=== PATIENT | female | born 1975 | race Caucasian/White ===

== ENCOUNTER 2023-11-05 14:09 | Emergency (ER) | payer BC, SELFPAY ==
[2023-11-05] VITALS (17 sets, daily range): BP systolic 111–141; BP diastolic 64–81; PULSE 92–126; RESP 22; TEMP 36.8; O2SAT 90–98; BMI 51.5
--- NOTE | 2023-11-05 14:25 | XR_ITS ---
Patient: MEMO GUZMAN Facility:?[facility] Patient ID:?[id number] Site Patient ID:?[id number] Site :?[id number] Study:?XRay-Chest 2 VIEW-11/05/2023 2:42:30 PM Ordering Physician:NAINA Final Report: INDICATION: Pounding chest. COMPARISON: None. FINDINGS: PA and lateral views of the chest were obtained. The cardiac silhouette and pulmonary vasculature are within normal limits. The lungs are clear bilaterally. There is no pneumothorax. IMPRESSION: No evidence of acute pulmonary disease. Dictated by Dallas Ball MD @ 11/05/2023 2:59:22 PM Signed by:?Dallas Ball MD @11/05/2023 2:59:22 PM (Electronic Signature)
--- NOTE | 2023-11-05 14:27 | ED.GENADULT ---
HPI - General Adult General Chief complaint: Diarrhea Stated complaint: Migraine, chest hurts, vomiting, diarrhea Time Seen by Provider: 11/05/23 14:21 Source: patient Mode of arrival: ambulatory Limitations: no limitations History of Present Illness HPI narrative: 48-year-old female with a history of osteoarthritis, migraine headaches and obesity presents today with vomiting, diarrhea, headache and chest pressure. Patient states that she woke up around 5:00 a.m. in the morning which was approximately 8 hours ago, with vomiting and diarrhea. Approximately 2 hours ago she developed a terrible headache and pounding in her chest. She states that she has not been able to drink or eat anything since waking up. She denies any fevers or chills. She denies any sick contacts. She does state that she went to [place] last week and came home 1 week ago. She denies feeling short of breath. She does state that she has migraine headaches but has not had 1 in a couple of years therefore she did not have any medications to take at home. Headache is located all over the head. She describes light sensitivity. She denies pain in her neck or back. She denies dizziness or vertigo. She denies any blood in her vomitus or stool. Related Data Home Medications Medication Instructions Recorded Confirmed atorvastatin 20 mg tablet 20 mg PO DAILY 10/23/23 11/05/23 ibuprofen 200 mg tablet (Advil) 200 mg PO Q6H PRN 10/23/23 11/05/23 Previous Rx's Medication Instructions Recorded ondansetron HCl 4 mg tablet 4 mg PO TID PRN nausea and 11/05/23 vomiting #10 tabs Allergies Allergy/AdvReac Type Severity Reaction Status Date / Time acetaminophen [From Percocet] Allergy Intermediate Verified 11/05/23 15:47 oxycodone [From Percocet] Allergy Intermediate Verified 11/05/23 15:47 Review of Systems Status of ROS: Reports: 10 or more systems reviewed and unremarkable except as noted in History and below [facility] Medical History Costochondritis ?M94.0 - Chondrocostal junction syndrome [Tietze] (ICD-10) Sensation of chest pressure ?R07.89 - Other chest pain (ICD-10) Right upper quadrant abdominal pain ?R10.11 - Right upper quadrant pain (ICD-10) Nausea and vomiting ?R11.2 - Nausea with vomiting, unspecified (ICD-10) Morbid obesity ?E66.01 - Morbid (severe) obesity due to excess calories (ICD-10) Migraine headache ?G43.909 - Migraine, unspecified, not intractable, without status migrainosus (ICD-10) History of tobacco use ?Z87.891 - Personal history of nicotine dependence (ICD-10) History of migraine ?Z86.69 - Personal history of other diseases of the nervous system and sense organs (ICD-10) Gastritis ?K29.70 - Gastritis, unspecified, without bleeding (ICD-10) Atypical chest pain ?R07.89 - Other chest pain (ICD-10) Acute bronchospasm ?J98.01 - Acute bronchospasm (ICD-10) Abdominal pain ?R10.9 - Unspecified abdominal pain (ICD-10) Surgical History History of tubal ligation ?Z98.51 - Tubal ligation status (ICD-10) History of carpal tunnel surgery of right wrist (12/28/17) ?Z98.890 - Other specified postprocedural states (ICD-10) History of repair of anterior cruciate ligament of right knee (03/12/08) ?Z98.890 - Other specified postprocedural states (ICD-10) History of arthroscopy of right knee (07/18/07) ?Z98.890 - Other specified postprocedural states (ICD-10) H/O arthroscopy of right knee (11/15/99) ?Z98.890 - Other specified postprocedural states (ICD-10) Hx of cholecystectomy ?Z90.49 - Acquired absence of other specified parts of digestive tract (ICD-10) Family History Mother Hypercholesterolemia High blood pressure Other Cervical cancer Ovarian cancer Social History Smoking Status: Heavy tobacco smoker What tobacco products do you use: cigarettes Smoking packs per day: 0.75 Smoking cigarettes per day: 15.0 Years smoked: 25 Smoking pack-years: 18.75 Do you use any of these nicotine containing products: None Second hand tobacco smoke exposure: No How often do you have a drink containing alcohol: monthly or less AUDIT-C Alcohol total score: 1 Non-prescribed substance use: denies use Exam Narrative: Exam Narrative: Obese, well-developed patient in mild distress. Alert and oriented x3. Answers questions appropriately. Mood and affect are appropriate. Thoughts are goal oriented and rational. No tangential or magical thinking noted. Patient speaks in full sentences without needing to catch her breath. HEENT: Normocephalic atraumatic. Pupils are equally round reactive to light. Extraocular muscles are intact. Conjunctivae are moist without any icterus noted. Moist mucous membranes. Posterior pharynx is normal. Neck is soft without any lymphadenopathy or thyromegaly. No masses are appreciated. Cardiovascular: Heart is regular rate and rhythm S1 and S2 are present without any murmurs. Lungs: Increased bronchial sounds bilaterally, slightly increased expiratory phase. Abdomen: Soft and nontender nondistended with normal bowel sounds. Extremities: Bilateral lower extremities are without edema. Skin: Well perfused without any obvious rashes. Const: Vital Signs, click to edit/add: Vital Signs - 24 hr 11/05/23 14:13 11/05/23 14:44 11/05/23 14:45 Temperature 98.2 F Pulse Rate 117 H 116 H Pulse Rate [Pulse Oximeter] 126 H Respiratory Rate 22 Blood Pressure Blood Pressure [Ri ght Upper Arm] 141/81 H Pulse Oximetry 96 94 96 Oxygen Delivery Me thod Room Air 11/05/23 14:55 11/05/23 14:56 11/05/23 15:00 Temperature Pulse Rate 106 H 106 H 106 H Pulse Rate [Pulse Oximeter] Respiratory Rate Blood Pressure 133/78 Blood Pressure [Ri ght Upper Arm] Pulse Oximetry 95 92 91 Oxygen Delivery Me thod 11/05/23 15:01 11/05/23 15:15 11/05/23 15:30 Temperature Pulse Rate 105 H 107 H 100 Pulse Rate [Pulse Oximeter] Respiratory Rate Blood Pressure 118/73 Blood Pressure [Ri ght Upper Arm] Pulse Oximetry 91 90 91 Oxygen Delivery Me thod 11/05/23 15:32 11/05/23 16:26 11/05/23 16:30 Temperature Pulse Rate 104 H 100 93 Pulse Rate [Pulse Oximeter] Respiratory Rate Blood Pressure 111/64 Blood Pressure [Ri ght Upper Arm] Pulse Oximetry 91 94 96 Oxygen Delivery Me thod 11/05/23 16:32 11/05/23 16:45 Temperature Pulse Rate 92 93 Pulse Rate [Pulse Oximeter] Respiratory Rate Blood Pressure 112/70 Blood Pressure [Ri ght Upper Arm] Pulse Oximetry 95 98 Oxygen Delivery Me thod Course Course ED Course: EKG, read by me, shows sinus tachycardia with a pulse of 116. Point of care troponin was 0. IV inserted and patient is given Zofran, Toradol, Benadryl, L of normal saline. CBC was unremarkable. D-dimer was elevated at 1.4. Given that the patient has had recent traveling, is quite tachycardic and and complains of her chest pounding we did proceed with a chest CT PE protocol. If this was negative for PE. Did mention some ground-glass opacities that could be infectious, however, without an elevated white cell count or CP and without any respiratory symptoms I do believe this likely represents atelectasis. After 1 L of fluid her pulse had come down to 106, 2 L was started. Chemistries were unremarkable. Lactate was normal. ALT slightly elevated at 53, otherwise LFTs normal. Lipase normal. Troponin was normal. Patient was feeling better after treatment, pulse did come down to 93 after 2 L of normal saline. Vital Signs Vital signs: Initial Vital Signs Temperature 98.2 F 11/05/23 14:13 Temperature Source Temporal Artery Scan 11/05/23 14:13 Pulse Rate 126 H 11/05/23 14:13 Respiratory Rate 22 11/05/23 14:13 Blood Pressure 141/81 H 11/05/23 14:13 Blood Pressure Mean 101 11/05/23 14:13 Blood Pressure Position Sitting 11/05/23 14:13 Pulse Oximetry 96 11/05/23 14:13 Oxygen Delivery Method Room Air 11/05/23 14:13 Vital Signs Temperature 98.2 F 11/05/23 14:13 Pulse Rate 126 H 11/05/23 14:13 Respiratory Rate 22 11/05/23 14:13 Blood Pressure 141/81 H 11/05/23 14:13 Pulse Oximetry 96 11/05/23 14:13 Oxygen Delivery Method Room Air 11/05/23 14:13 Temperature 98.2 F 11/05/23 14:13 Pulse Rate 93 11/05/23 16:45 Respiratory Rate 22 11/05/23 14:13 Blood Pressure 112/70 11/05/23 16:32 Pulse Oximetry 98 11/05/23 16:45 Oxygen Delivery Method Room Air 11/05/23 14:13 Medications Administered Medications: Discontinued Medications Generic Name Dose Route Start Last Admin Trade Name Jbq PRN Reason Stop Dose Admin Diphenhydramine HCl 25 mg 11/05/23 14:25 11/05/23 14:49 Diphenhydramine 50 Mg/Ml Inj IVP 11/05/23 14:26 25 mg ONCE ONE Administration Sodium Chloride 1,000 mls @ 1,000 mls/hr 11/05/23 14:30 11/05/23 15:32 0.9 % Sodium Chloride 1000 Ml IV 11/05/23 15:29 Infused .Q1H DULCE Infusion Sodium Chloride 1,000 mls @ 1,000 mls/hr 11/05/23 15:45 11/05/23 16:20 0.9 % Sodium Chloride 1000 Ml IV 11/05/23 16:44 1,000 mls/hr .Q1H DULCE Administration Ketorolac Tromethamine 30 mg 11/05/23 14:25 11/05/23 14:49 Ketorolac 30 Mg/Ml Inj IVP 11/05/23 14:26 30 mg ONCE ONE Administration Ondansetron HCl 4 mg 11/05/23 14:25 11/05/23 14:49 Ondansetron 2 Mg/Ml Inj IVP 11/05/23 14:26 4 mg ONCE ONE Administration Medical Decision Making MDM Narrative Medical decision making narrative: Vomiting, diarrhea, migraine headache. This likely represents gastroenteritis. Will send the patient home with some Caroline, we discussed hydration and rest. She had no other questions. Lab Data Lab results reviewed: Yes I reviewed the patient's lab results Labs: Lab Results 11/05/23 Range/Units 14:40 WBC 8.96 (4.50-11.00) K/uL RBC 5.24 H (4.00-5.20) m/uL Hgb 15.3 (12.0-16.0) gm/dL Hct 45.3 (33.0-51.0) % MCV 87 (80-100) fL MCH 29 (26-34) pg MCHC 34 (32-36) gm/dL RDW Coeff of Micheal 12.3 (11.5-15.5) % Plt Count 263 (140-440) K/uL Neut % (Auto) 89.3 H (42.0-72.0) % Lymph % (Auto) 6.7 L (20-44) % Elmore % (Auto) 3.0 (0.0-11.0) % Eos % (Auto) 0.8 (0.0-7.0) % Baso % (Auto) 0.1 (0.0-3.0) % Neut # (Auto) 8.00 H (1.7-7.0) K/uL Lymph # (Auto) 0.60 L (0.90-2.90) K/uL Elmore # (Auto) 0.30 (0.00-0.90) K/UL Eos # (Auto) 0.07 (0.00-0.50) K/uL Baso # (Auto) 0.01 (0.00-0.30) K/uL Abs Immat Gran (auto) 0.01 (0.00-0.30) K/uL Imm/Tot Granulo (auto) 0.1 % D-Dimer Quant (PE/DVT) 1.40 H (0.00-0.50) ug/ml Sodium 135 (135-149) mmol/L Potassium 3.6 (3.6-5.1) mmol/L Chloride 106 (96-114) mmol/L Carbon Dioxide 22 (20-32) mmol/L Anion Gap 7 (7-15) mEq/L BUN 14 (5-24) mg/dL Creatinine 0.7 (0.5-1.5) mg/dL Estimated Creat Clear 83.95 Estimated GFR 106 ml/min Glucose 127 H (60-115) mg/dL Lactate 1.2 (0.5-1.9) mmol/L Calcium 8.8 (8.4-10.6) mg/dL Total Bilirubin 0.8 (0.1-1.5) mg/dL Direct Bilirubin 0.0 (0.0-0.5) mg/dL AST 35 (12-35) U/L ALT 53 H (4-35) U/L Alkaline Phosphatase 130 (40-150) U/L Troponin I < 0.01 L (0.01-0.04) ng/mL Total Protein 7.6 (6.0-8.3) g/dL Albumin 4.2 (3.3-5.0) g/dL Lipase 62 (23-300) U/L POC Troponin I 0.00 L (0.01-0.04) ng/ml Imaging Data Chest x-ray: Attestation: I have reviewed the pertinent imaging results. Radiologist's impression: Study:?XRay-Chest 2 VIEW-11/05/2023 2:42:30 PM Ordering Physician:NAINA Final Report: INDICATION: Pounding chest. COMPARISON: None. FINDINGS: PA and lateral views of the chest were obtained. The cardiac silhouette and pulmonary vasculature are within normal limits. The lungs are clear bilaterally. There is no pneumothorax. IMPRESSION: No evidence of acute pulmonary disease. CT scan - chest: Attestation: I have reviewed the pertinent imaging results. Radiologist's impression: Study:?CT-Chest PE 100CC ISOVUE 370-11/05/2023 4:22:26 PM Ordering Physician:ROGELIO Final Report: INDICATION: Chest pain TECHNIQUE: CT chest with 100 mL Isovue 370 COMPARISON: None. FINDINGS: Lungs and pleura: Low lung volumes. Some minimal patchy ground-glass opacities could be infectious/inflammatory part of this may reflect atelectasis. Heart and vasculature: The heart is enlarged. Thoracic aorta and pulmonary artery are normal in caliber. No pulmonary emboli. Coronary artery calcification. Lymph nodes/mediastinum: No mediastinal, hilar, or axillary adenopathy. Chest wall: No masses. Upper abdomen: No significant findings. Cholecystectomy. Bones: Unremarkable for age. IMPRESSION: 1. No pulmonary emboli. Low lung volumes with minimal ground-glass opacities which could be infectious/inflammatory. Part of this may reflect atelectasis. ECG Data Attestation: I personally reviewed and interpreted this ECG as follows: Discharge Plan Discharge Clinical Impression: Gastroenteritis, Migraine Patient Disposition: Home, Self-Care Condition: Improved Additional Instructions: You will be sent home with Zofran, this is a medication to help with nausea and vomiting, take as needed. Do your best to stay well hydrated. Diarrhea and vomiting can last 1-2 days before it starts to slowly get better. Return to the ER if you feel like you are getting worse. Prescriptions: New ondansetron HCl 4 mg tablet 4 mg PO TID PRN (Reason: nausea and vomiting) Qty: 10 0RF No Action atorvastatin 20 mg tablet 20 mg PO DAILY ibuprofen [Advil] 200 mg tablet 200 mg PO Q6H PRN Follow Up/Referrals: Angely Hugo PA-C [Primary Care Provider] - Stand Alone Forms: [employer] Info Instructions
[2023-11-05] MEDS: 0.9 % SODIUM CHLORIDE 1000 ml 1,000 ML IV ×2 (14:48→16:20)
[2023-11-05] MEDS: diphenhydrAMINE 50 MG/ML inj 25 MG IVP (14:49)
[2023-11-05] MEDS: ONDANSETRON 2 MG/ML inj 4 MG IVP (14:49)
[2023-11-05] MEDS: KETOROLAC 30 MG/ML inj IVP (14:49)
[2023-11-05 14:59] LABS: Lactate* 1.2 mmol/L (0.5-1.9)
[2023-11-05 15:03] LABS: Basophils Absolute Auto 0.01 K/uL (0.00-0.30); Basophils Percent Auto 0.1 % (0.0-3.0); Eosinophils Absolute Auto 0.07 K/uL (0.00-0.50); Eosinophils Percent Auto 0.8 % (0.0-7.0); Hematocrit 45.3 % (33.0-51.0); Hemoglobin* 15.3 gm/dL (12.0-16.0); Immature Granulocytes Abs Auto 0.01 K/uL (0.00-0.30); Immature Granulocytes Pct Auto 0.1 %; Lymphocytes Percent Auto 6.7 % (20-44); Mean Corpuscular HGB Conc 34 gm/dL (32-36); Mean Corpuscular Hemoglobin 29 pg (26-34); Mean Corpuscular Volume 87 fL (80-100); Neutrophils Percent Auto 89.3 % (42.0-72.0); Platelet Count* 263 K/uL (140-440); RDW Coefficient of Variation % 12.3 % (11.5-15.5); Red Blood Count 5.24 m/uL (4.00-5.20); White Blood Count* 8.96 K/uL (4.50-11.00)
[2023-11-05 15:18] LABS: Slide Review Reflex No
[2023-11-05 15:32] LABS: Albumin* 4.2 g/dL (3.3-5.0); Chloride* 106 mmol/L (96-114); Sodium* 135 mmol/L (135-149)
--- NOTE | 2023-11-05 15:32 | CT_ITS ---
Patient: MEMO GUZMAN Facility:?[facility] Patient ID:?[id number] Site Patient ID:?[id number]. Site :?[id number] Study:?CT-Chest PE 100CC ISOVUE 370-11/05/2023 4:22:26 PM Ordering Physician:ROGELIO Final Report: INDICATION: Chest pain TECHNIQUE: CT chest with 100 mL Isovue 370 COMPARISON: None. FINDINGS: Lungs and pleura: Low lung volumes. Some minimal patchy ground-glass opacities could be infectious/inflammatory part of this may reflect atelectasis. Heart and vasculature: The heart is enlarged. Thoracic aorta and pulmonary artery are normal in caliber. No pulmonary emboli. Coronary artery calcification. Lymph nodes/mediastinum: No mediastinal, hilar, or axillary adenopathy. Chest wall: No masses. Upper abdomen: No significant findings. Cholecystectomy. Bones: Unremarkable for age. IMPRESSION: 1. No pulmonary emboli. Low lung volumes with minimal ground-glass opacities which could be infectious/inflammatory. Part of this may reflect atelectasis. Please note that all CT scans at this facility use dose modulation, iterative reconstruction, and/or weight-based dosing when appropriate to reduce radiation dose to as low as reasonably achievable. Dictated by Charu Alva MD @ 11/05/2023 4:47:18 PM Signed by:?Charu Alva MD @11/05/2023 4:47:18 PM (Electronic Signature)
[2023-11-05 15:33] LABS: Potassium* 3.6 mmol/L (3.6-5.1)
[2023-11-05 15:34] LABS: Aspartate Amino Transferase* 35 U/L (12-35); Bilirubin Total* 0.8 mg/dL (0.1-1.5); Total Protein* 7.6 g/dL (6.0-8.3)
[2023-11-05 15:35] LABS: Alanine Aminotransferase* 53 U/L (4-35); Alkaline Phosphatase* 130 U/L (40-150); Creatinine* 0.7 mg/dL (0.5-1.5); Est. Creatinine Clearance* 83.95; Estimated Glomerular Filt Rate 106 ml/min; Lipase* 62 U/L (23-300)
[2023-11-05 15:36] LABS: Anion Gap 7 mEq/L (7-15); Blood Urea Nitrogen* 14 mg/dL (5-24); Calcium* 8.8 mg/dL (8.4-10.6); Carbon Dioxide* 22 mmol/L (20-32); Glucose* 127 mg/dL (60-115)
[2023-11-05 15:47] LABS: Troponin I* < 0.01 ng/mL (0.01-0.04)
== END 2023-11-05 17:36 | disposition home or self-care (01) ==
PROVIDERS: Emergency Provider Family Medicine; PCP Physician Assistant
DX: K52.9 Noninfective gastroenteritis and colitis, unspecified (principal); G43.909 Migraine, unspecified, not intractable, without status migrainosus
CPT/HCPCS: 36415; 71046; 71275; 80048; 80076; 83605; 83690; 84484; 85025; 85379; 93005; 94761; 96361; 96374; 96375; 99284; 99285; J1200; J1885; J2405; J7030; Q9967

== ENCOUNTER 2023-12-19 07:14 | Day surgery (SDC) | payer BC, SELFPAY ==
[2023-12-19] VITALS (21 sets, daily range): BP systolic 110–162; BP diastolic 68–110; PULSE 57–102; RESP 14–20; TEMP 35.2–36.8; O2SAT 93–97; BMI 50.5
[2023-12-19] MEDS: LACTATED RINGERS 1000 ML 1,000 ML 100 ML IV ×2 (07:20→09:46)
[2023-12-19 07:39] LABS: Ur HCG Qualitative* Negative (Negative)
[2023-12-19] MEDS: MIDAZOLAM HCL 1 MG/ML inj IVP (08:30)
[2023-12-19] MEDS: OXYCODONE (CR) 10 MG TAB.ER.12H PO (08:30)
[2023-12-19] MEDS: CELECOXIB 200 MG CAPSULE PO (08:30)
[2023-12-19] MEDS: fentaNYL 100 MCG/2 ML inj IVP (08:33)
[2023-12-19] MEDS: SODIUM CHLORIDE 0.9 % (FLUSH) 10 ML SYRINGE IVF (08:34)
--- NOTE | 2023-12-19 08:34 | SUR.PREOP ---
TIME?OUT:?0830 PT/RN/MDA?VERIFICATION?OF?SURGICAL?SITE,?PROCEDURE,?AND?CONSENT OBTAINED?PRIOR?TO?INVASIVE?PROCEDURE.
[2023-12-19] MEDS: TRANEXAMIC ACID 100 MG/ML INJ 1000 MG IV (09:15)
[2023-12-19] MEDS: CEFAZOLIN 2 GM INJ IVP (09:15)
--- NOTE | 2023-12-19 09:43 | P.NB_ITS ---
Nerve Block Nerve Block Time Seen by Provider: 09:00 Date Seen: 12/19/23 Type of block requested by surgeon for post-operative analgesia: adductor canal Side: left Time out performed: Yes Verification of patient name: Yes Verification of date of : Yes Site marking: site marked Name of person performing procedure: Stuart Harsh Continuous monitoring Was continuous monitoring of O2 sat, B/P, groundwater monitoring technician, recorded every 15 minutes?: Yes Procedure Checklist: sterile prep, needles and gloves Ultrasound guided. Images saved: Yes Medications given in 5ml increments after negative aspiration: Ropivicaine %: 0.5 mL: 30 Needle gauge: 20 Decadron (mg): 10 Precedex (mcg): 25 Patient tolerated procedure well: Yes Additional comments: Injected in 5mL increments after negative aspiration Block Charges Block Charge (with Pro Fee): Femoral Nerve Use of Ultrasound Machine for Block: Yes- US Guidance/pain block
--- NOTE | 2023-12-19 10:51 | CRLHL7_ITS ---
For Patients: As a result of the Century Cures Act, medical imaging exams and procedure reports are released immediately into your electronic medical record. You may view this report before your referring provider. If you have questions, please contact your health care provider. INDICATION: Postop TKA. TECHNIQUE: Two views of the left knee. FINDINGS: New left TKA. Components appear well seated. Adjacent postop soft tissue air. Dictated by Linwood Manning MD @ 12/20/2023 11:51:21 AM (Electronically Signed)
--- NOTE | 2023-12-19 10:51 | W.ANESCHARGE ---
Anesthesia Charges Start Date/Time Anesthesia Start Date: 12/19/23 Anesthesia Start Time: 08:57 Stop Date/Time Anesthesia Stop Date: 12/19/23 Anesthesia Stop Time: 11:54
--- NOTE | 2023-12-19 10:52 | P.ORPRC_ITS ---
Procedure Note Date of procedure: 12/19/23 Procedure: PREOPERATIVE DIAGNOSIS: Left knee osteoarthritis POSTOPERATIVE DIAGNOSIS: Left knee osteoarthritis NAME OF OPERATION: Left total knee arthroplasty SURGEON: Raza Walker MD ENAMEL DIPPER: Roopa Pineda PA-C ANESTHESIA: Spinal ESTIMATED BLOOD LOSS: 0 mL COMPLICATIONS: None SPECIMENS: None DRAINS: None PREOPERATIVE ANTIBIOTICS: Ancef 3 grams, antibiotic impregnated cement IMPLANTS: 1. J&J Attune revision CRS #6 posterior stabilized femur, with a 14 mm x 50 mm cemented stem 2. #4 revision CRS fixed-bearing tibia, with a 14 mm x 50 mm cemented stem 3. #6 posterior stabilized, 10 mm fixed-bearing polyethylene 4. 38 patella INDICATIONS: The patient is a 48-year-old with a longstanding history of severe, unrelenting left knee pain secondary to end-stage (grade IV) left knee osteoarthritis. Despite appropriate nonoperative management, including activity modification, anti-inflammatories, [id number] pain medication, bracing, physical therapy, and injections they continue to have pain and disability. Operative intervention was offered. The risks, benefits and expected outcomes were discussed in detail. These included but were not limited to: Infection, bleeding, injury to blood vessel or nerve, venous thromboembolism. All questions were answered to their satisfaction. Use of an expanded duty dental assistant was necessary throughout the case for patient positioning and safety, soft tissue retraction, and closure. A modifier 22 should be added to this case. The patient's weight of 138 kg with a BMI of 50 made the exposure difficult. In order to reduce the risk of aseptic loosening in a morbidly obese patient, we elected to use stems on both sides of the joint. These factors added more time and expense to the case. PROCEDURE: Spinal anesthesia was administered. The patient was placed supine o n the operating table. The expanded duty dental assistant made sure the patient was positioned appropriately. The lower extremity was prepped and draped in the usual sterile fashion. The limb was exsanguinated with the Matt bandage. The pneumatic tourniquet was inflated to 300 mmHg. A standard anterior incision was made with the knee in flexion. Subcutaneous dissection was sharply taken through fascial layer #1. Full-thickness medial and lateral flaps were elevated. The expanded duty dental assistant retracted the soft tissues and protected them throughout the case. A standard subvastus approach was made. The patella was everted. The infrapatellar fat pad was debrided. The menisci and cruciate ligaments were sharply d?brided. Marginal osteophytes were d?brided with the rongeur. The drill was used to penetrate the femoral canal. The canal was aspirated and irrigated with pulse lavage. The intramedullary femoral guide was placed for a 5-degree valgus cut, removing 10 mm off the distal femur. The saw was used to make the cut. Whitesides line and the trans epicondylar axis were marked. The femoral sizing guide was pinned onto the distal femur. Three degrees of external rotation nicely parallels the transepicondylar axis. Pins were placed for posterior referencing. The four-in-one cutting guide was pinned onto the distal femur. The anterior, posterior, and chamfer cuts were made. The expanded duty dental assistant protected the collateral ligaments. The revision trial was placed. The box cuts were made. The drill was used x2. The stemmed, boxed trial was placed and was an excellent fit. Attention was then turned to the proximal tibia. The extramedullary tibial guide was placed for a neutral varus/valgus cut with 5 degrees of posterior slope, removing 2 mm based off the medial tibial surface. The expanded duty dental assistant protected the collateral ligaments and the neurovascular bundle. The saw was used to make the cut. Trial components were placed. The knee was nicely balanced in both flexion and extension. The trial components were removed. The tray was placed in appropriate rotation, parallel to our tibial cutting pins. It was pinned by the expanded duty dental assistant and the drill x2 was used. The stemmed tibial trial was placed. The punch was used. The tray was removed. The punch was used again. Attention was then turned to the patella. [place] patellar thickness was 23 mm. The lobster claw resection guide was used with the 9.5 mm analisa. The saw was used to make the cut. Drill holes were made by the expanded duty dental assistant. The trial was placed and was an excellent fit. Cancellous surfaces were irrigated with pulse lavage and thoroughly dried by the expanded duty dental assistant. We cemented the tibial component, then the femoral component. We impacted the 10 mm polyethylene onto the tibial tray. The knee was brought into full extension. We then cemented the patellar component. Excessive cement was removed. The cement was allowed to harden. The knee was taken through a range of motion and was found to be nicely balanced in both flexion and extension. The patella tracks centrally. The expanded duty dental assistant did a three minute dilute Betadine solution soak. The expanded duty dental assistant irrigated the wound with 3 liters of normal saline via pulse lavage. The expanded duty dental assistant reapproximated the extensor mechanism with #1 Vicryl in an interrupted [id number] fashion. The expanded duty dental assistant then ran the extensor mechanism with a #1 PDO Stratafix. The expanded duty dental assistant closed the subcutaneous tissues with a 3-0 Stratafix and the skin with a running 3-0 Stratafix in a subcuticular fashion. Glue was used to seal the skin. The expanded duty dental assistant placed a dry dressing. Sponge and needle counts were correct x2. The patient tolerated the procedure well. There were no apparent complications. They were carefully transferred to the hospital bed and taken to the ostanesthesia care unit in satisfactory condition. PLAN: The patient will be mobilized with physical therapy. Aspirin will be used for DVT prophylaxis. They will be discharged to home once medically appropriate.
--- NOTE | 2023-12-19 11:53 | W.ANESCHARGE ---
Anesthesia Charges Start Date/Time Anesthesia Start Date: 12/19/23 Anesthesia Start Time: 08:57 Stop Date/Time Anesthesia Stop Date: 12/19/23 Anesthesia Stop Time: 11:54
--- NOTE | 2023-12-19 12:46 | W.PM.NB ---
Nerve Block Nerve Block Time Seen by Provider: 09:00 Date Seen: 12/19/23 Type of block requested by surgeon for post-operative analgesia: geniculars Side: left Time out performed: Yes Verification of patient name: Yes Verification of date of : Yes Site marking: site marked Name of person performing procedure: Stuart Chentricia Continuous monitoring Was continuous monitoring of O2 sat, B/P, gambling monitor, recorded every 15 minutes?: Yes Procedure Checklist: sterile prep, needles and gloves Ultrasound guided. Images saved: Yes Medications given in 5ml increments after negative aspiration: Ropivicaine %: 0.5 mL: 12 Needle gauge: 25 Patient tolerated procedure well: Yes Additional comments: Injected in 4mL increments after negative aspirations Block Charges Block Charge (with Pro Fee): Genicular Nerve Block Use of Ultrasound Machine for Block: No
[2023-12-19] MEDS: LACTATED RINGERS 1000 ML 1,000 ML 75 ML IV (14:01)
[2023-12-19] MEDS: ACETAMINOPHEN 500 MG TABLET 1000 MG PO ×2 (14:06→20:18)
[2023-12-19] MEDS: HYDROmorphone 0.5 mg/0.5 ml inj IVP (14:07)
[2023-12-19] MEDS: OXYCODONE 5 MG TABLET PO ×4 (15:25→23:29)
--- NOTE | 2023-12-19 15:29 | P.IMCN_ITS ---
Date of Consult Patient: Irene Patient Consult date: 12/19/23 Requesting Physician: Orthopedics Primary Care Provider: Angely Hugo PA-C Consult Narrative Reason for consult: hyperlipidemia, migraine headaches Narrative: Ivett Cordon is a 48 year old female with history of hyperlipidemia, PCOS, obesity, and migraine headaches who underwent an elective left total knee arthroplasty today by Dr. Walker for left knee osteoarthritis. She is doing well postoperatively. She has some discomfort in her left knee, but denies true pain. She tells me she is somewhat tired because she just got a pain pill. Review of Systems Status of ROS: Reports: 6 or more systems reviewed and unremarkable except as noted in History and below [facility] Medical History (Updated 12/19/23 @ 15:51 by Kayleigh Grajeda MD) Exercise intolerance ?R68.89 - Other general symptoms and signs (ICD-10) Physical deconditioning ?R53.81 - Other malaise (ICD-10) Colon polyp ?K63.5 - Polyp of colon (ICD-10) Insomnia ?G47.00 - Insomnia, unspecified (ICD-10) IUD (intrauterine device) in place ?Z97.5 - Presence of (intrauterine) contraceptive device (ICD-10) Mixed hyperlipidemia ?E78.2 - Mixed hyperlipidemia (ICD-10) Morbid obesity with BMI of 45.0-49.9, adult ?E66.01 - Morbid (severe) obesity due to excess calories (ICD-10) ?Z68.42 - Body mass index [BMI] 45.0-49.9, adult (ICD-10) Costochondritis ?M94.0 - Chondrocostal junction syndrome [Tietze] (ICD-10) Migraine headache ?G43.909 - Migraine, unspecified, not intractable, without status migrainosus (ICD-10) History of tobacco use ?Z87.891 - Personal history of nicotine dependence (ICD-10) Atypical chest pain ?R07.89 - Other chest pain (ICD-10) Acute bronchospasm ?J98.01 - Acute bronchospasm (ICD-10) Surgical History (Updated 12/19/23 @ 15:51 by Kayleigh Grajeda MD) Status post total left knee replacement ?Z96.652 - Presence of left artificial knee joint (ICD-10) History of tubal ligation ?Z98.51 - Tubal ligation status (ICD-10) History of carpal tunnel surgery of right wrist (12/28/17) ?Z98.890 - Other specified postprocedural states (ICD-10) History of repair of anterior cruciate ligament of right knee (03/12/08) ?Z98.890 - Other specified postprocedural states (ICD-10) History of arthroscopy of right knee (07/18/07) ?Z98.890 - Other specified postprocedural states (ICD-10) H/O arthroscopy of right knee (11/15/99) ?Z98.890 - Other specified postprocedural states (ICD-10) Hx of cholecystectomy ?Z90.49 - Acquired absence of other specified parts of digestive tract (ICD- 10) Family History Mother Hypercholesterolemia High blood pressure Other Cervical cancer Ovarian cancer Social History (Updated 12/19/23 @ 15:21 by Kayleigh Grajeda MD) Narrative: . Works in [employer]. Grown kids. Quit smoking 2 months ago. Used to smoke 1-1.5ppd for 30 years. Rare alcohol use. No recreational drugs. What is your current living situation?: I presently have a place to live Problems where you live: no known problems In the past 12 months, utilities in danger of being shut off: no In past 12 months, lack of transportation kept you from medical appts, meetings, work, or getting things needed for daily living: no In the past 12 mos, have been you worried that your food would run out before you had money to buy more?: never true In the past 12 mos, the food you bought just didn't last and you didn't have money to buy more?: never true Highest level of school completed/degree received: some college, no degree Smoking Status: Former smoker What tobacco products do you use: cigarettes Smoking packs per day: 0.5 Smoking cigarettes per day: 10.0 Years smoked: 40 Smoking pack-years: 20.00 Smoking quit date/years: <= 15 years ago Do you use any of these nicotine containing products: None Second hand tobacco smoke exposure: Yes How often do you have a drink containing alcohol: monthly or less How many standard drinks containing alcohol do you have on a typical day: 1 or 2 How often do you have six or more drinks on one occasion: Never AUDIT-C Alcohol total score: 1 Non-prescribed substance use: denies use Caffeine: No How often does anyone, including family, friends and others, physically hurt you : never How often does anyone, including family, friends and others, insult or talk down to you: never How often does anyone, including family, friends and others, threaten you with harm: never How often does anyone, including family, friends and others, scream or curse at you: never service: No Meds Home Medications and Allergies Home Medications ?Medication ?Instructions ?Recorded ?Confirmed ?Type atorvastatin 20 mg tablet 20 mg PO HS 10/23/23 12/19/23 History ibuprofen 200 mg tablet (Advil) 200 mg PO Q6H PRN 10/23/23 12/19/23 History Allergies Allergy/AdvReac Type Severity Reaction Status Date / Time No Known Drug Allergies Allergy Verified 12/19/23 07:33 Exam Narrative: Exam Narrative: General: No acute distress. Awake alert oriented x3. Morbidly obese. HEENT: Normocephalic atraumatic, pupils equally round and reactive to light and accommodation. Oropharynx clear. Mucous membranes are moist. No cervical lymphadenopathy, thyromegaly or carotid bruits. No JVD. Cardiovascular: Regular rate and rhythm. No murmurs, gallops, or rubs. Chest: No increased work of breathing. Clear to auscultation bilaterally. No crackles or wheezes. Abdomen: Bowel sounds present. Soft, nondistended, nontender. No hepatosplenomegaly or masses. Extremities: Left knee bandage is clean, dry, and intact. No edema, no cyanosis or clubbing. Skin: No jaundice, no pallor, no rashes. Const: Vital Signs, click to edit/add: Vital Signs - 24 hr 12/19/23 08:24 12/19/23 08:30 12/19/23 11:51 Temperature 98.0 F 97.3 F L Pulse Rate 70 75 75 Respiratory Rate 16 16 14 Blood Pressure 138/85 150/97 H 111/68 Pulse Oximetry 95 96 96 Oxygen Delivery Me thod Nasal Cannula Non Rebreather Mas k Oxygen Flow Rate 2 10 Fraction of Inspir ed Oxygen 100 12/19/23 11:55 12/19/23 12:00 12/19/23 12:05 Temperature Pulse Rate 68 71 70 Respiratory Rate 14 16 16 Blood Pressure 111/75 112/74 110/69 Pulse Oximetry 96 96 97 Oxygen Delivery Me thod Non Rebreather Mas k Non Rebreather Mas k Room Air Oxygen Flow Rate 10 10 Fraction of Inspir ed Oxygen 100 100 12/19/23 12:10 12/19/23 12:15 12/19/23 12:20 Temperature 97.2 F L Pulse Rate 65 70 65 Respiratory Rate 16 16 16 Blood Pressure 114/78 110/77 123/82 Pulse Oximetry 94 94 96 Oxygen Delivery Me thod Room Air Room Air Room Air Oxygen Flow Rate Fraction of Inspir ed Oxygen 12/19/23 12:46 Temperature 95.6 F L Pulse Rate 57 L Respiratory Rate 14 Blood Pressure 119/84 Pulse Oximetry 95 Oxygen Delivery Me thod Room Air Oxygen Flow Rate Fraction of Inspir ed Oxygen Assessment and Plan Assessment and plan (1) Status post total left knee replacement: Problem comment: - 12/19/23 Dr. Walker - Routine post op cares - VTE prophylaxis with twice a day low-dose aspirin and SCDs Status: Acute (2) Osteoarthritis of left knee: Status: Chronic (3) Morbid obesity with BMI of 45.0-49.9, adult: Status: Chronic (4) Mixed hyperlipidemia: Problem comment: Continue atorvastatin Status: Chronic
[2023-12-19] MEDS: CEFAZOLIN 3 GM in 0.9 % SODIUM CHLORIDE Mini-bag 100 ML IVPB ×2 (15:30→23:28)
--- NOTE | 2023-12-19 19:14 | PC.NURSE ---
Nursing Care Hours: [id number] Pt this shift arrived from PACU oriented and sedated. VS remained stable. SL after PO intake adequate. Void x3. Up with 1 assist/SB with walker and gait belt to bathroom. Up to chair. Bandage CDI, pedal pulses present. Pain treated with ice, and eMAR. Tolerating regular diet.
[2023-12-19] MEDS: SENNOSIDES 1 TAB TABLET 2 TAB PO (20:18)
[2023-12-19] MEDS: ATORVASTATIN 10 MG TABLET 20 MG PO (20:18)
[2023-12-19] MEDS: ASPIRIN 81 MG TABLET EC PO (20:19)
[2023-12-20] MEDS: ACETAMINOPHEN 500 MG TABLET 1000 MG PO ×2 (02:48→08:13)
[2023-12-20 02:49] VITALS: BP 150/79; PULSE 77; RESP 20; TEMP 36.6; O2SAT 96
[2023-12-20] MEDS: OXYCODONE 5 MG TABLET PO ×2 (03:42→08:13)
--- NOTE | 2023-12-20 06:46 | PC.NURSE ---
Pt is alert and oriented x3. Afebrile. Pt reports 3-8/10 pain in left knee, pain managed with cold to pack, and scheduled and PRN medications. Pt?s left knee dressing is CDI. Pt is up SBA with walker and gait belt, voiding, and tolerating a regular diet.?
[2023-12-20 06:49] LABS: Basophils Percent Auto 0.1 % (0.0-3.0); Hematocrit 37.2 % (33.0-51.0); Hemoglobin* 12.4 gm/dL (12.0-16.0); Immature Granulocytes Pct Auto 0.4 %; Lymphocytes Percent Auto 8.1 % (20-44); Mean Corpuscular HGB Conc 33 gm/dL (32-36); Mean Corpuscular Hemoglobin 29 pg (26-34); Mean Corpuscular Volume 88 fL (80-100); Monocytes Percent Auto 5.7 % (0.0-11.0); Neutrophils Percent Auto 85.7 % (42.0-72.0); Platelet Count* 250 K/uL (140-440); RDW Coefficient of Variation % 12.1 % (11.5-15.5); Red Blood Count 4.23 m/uL (4.00-5.20); White Blood Count* 16.35 K/uL (4.50-11.00)
[2023-12-20 06:54] LABS: Slide Review Reflex No
[2023-12-20 07:00] VITALS: BP 118/76; PULSE 75; RESP 16; TEMP 36.3; O2SAT 94
[2023-12-20 07:02] LABS: INR 0.96 (0.91-1.10); Prothrombin Time 13.4 Seconds
[2023-12-20 07:03] LABS: Potassium* 4.4 mmol/L (3.6-5.1); Sodium* 135 mmol/L (135-149)
[2023-12-20 07:06] LABS: Blood Urea Nitrogen* 12 mg/dL (5-24); Creatinine* 0.6 mg/dL (0.5-1.5); Est. Creatinine Clearance* 102.06; Estimated Glomerular Filt Rate 110 ml/min
[2023-12-20] MEDS: SENNOSIDES 1 TAB TABLET 2 TAB PO (08:13)
[2023-12-20] MEDS: ASPIRIN 81 MG TABLET EC PO (08:13)
--- NOTE | 2023-12-20 08:39 | PM.ORPN ---
Subjective Subjective Time Seen by Provider: 08:39 Date Seen: 12/20/23 Principal diagnosis: Day 1 s/p left total knee arthroplasty Interval history: Ivett is doing very well and resting comfortably in her recliner. She reports she has been ambulating frequently down the hallway. Denies: fever, chills, chest pain, SOB. Admits to intermittent tingling in her left foot/toes. Denies bowel movement postop, although admits to flatulence. Patient has PT scheduled to begin this Monday at [facility]. No acute concerns. Patient feels ready to be discharged to home later this morning. Pain is well controlled with scheduled oral pain medications and ice. Also, Ivett's daughter presented to our ED yesterday, which caused an increase in [her] blood pressure and anxiety. Ortho Exam Narrative Exam Narrative: Incision/Dressing: Dressing appears clean and dry. No drainage present. Mepilex intact. Left knee appears moderately swollen but supple with no obvious erythema, fluctuance or excessive warmth. No ecchymosis or erythematous streaking. Warmth around the wound is appropriate. Ice is being utilized as needed. CMS: Intact distally with 2+ Dorsalis pedis and Posterior Tibial pulses. 5/5 motor strength dorsal and plantar flexion. Confirmed sensation distally. Intact straight leg raise. Calf: Bilateral calves are supple, with no swelling, pain, tenderness, erythema, discoloration or coolness to the touch. Constitutional: Patient is alert and oriented x3. Patient is in no acute distress and converses without labored breathing. Patient is able to make decisions and demonstrates good insight. Patient is pleasant and cooperative. Affect is full range and appropriate for the circumstances. Const Vital Signs, click to edit/add: Vital Signs - 24 hr 12/19/23 11:51 12/19/23 11:55 12/19/23 12:00 Temperature 97.3 F L Pulse Rate 75 68 71 Pulse Rate [Pulse Oximeter] Respiratory Rate 14 14 16 Blood Pressure 111/68 111/75 112/74 Blood Pressure [Left Arm] Blood Pressure [Right Arm] Pulse Oximetry 96 96 96 Oxygen Delivery Method Non Rebreather Mask Non Rebreather Mask Non Rebreather Mask Oxygen Flow Rate 10 10 10 Fraction of Inspired Oxygen 100 100 100 12/19/23 12:05 12/19/23 12:10 12/19/23 12:15 Temperature Pulse Rate 70 65 70 Pulse Rate [Pulse Oximeter] Respiratory Rate 16 16 16 Blood Pressure 110/69 114/78 110/77 Blood Pressure [Left Arm] Blood Pressure [Right Arm] Pulse Oximetry 97 94 94 Oxygen Delivery Method Room Air Room Air Room Air Oxygen Flow Rate Fraction of Inspired Oxygen 12/19/23 12:20 12/19/23 12:28 12/19/23 12:30 Temperature 97.2 F L 95.6 F L 95.3 F L Pulse Rate 65 57 L 71 Pulse Rate [Pulse Oximeter] Respiratory Rate 16 14 14 Blood Pressure 123/82 119/84 120/69 Blood Pressure [Left Arm] Blood Pressure [Right Arm] Pulse Oximetry 96 95 95 Oxygen Delivery Method Room Air Room Air Room Air Oxygen Flow Rate Fraction of Inspired Oxygen 12/19/23 12:45 12/19/23 13:00 12/19/23 13:45 Temperature 95.7 F L 95.7 F L 95.8 F L Pulse Rate 65 77 Pulse Rate [Pulse Oximeter] Respiratory Rate 14 14 14 Blood Pressure 118/80 122/89 Blood Pressure [Left Arm] Blood Pressure [Right Arm] Pulse Oximetry 95 96 96 Oxygen Delivery Method Room Air Room Air Room Air Oxygen Flow Rate Fraction of Inspired Oxygen 12/19/23 14:15 12/19/23 15:00 12/19/23 15:00 Temperature Pulse Rate 83 Pulse Rate [Pulse Oximeter] Respiratory Rate 16 16 Blood Pressure 128/110 H Blood Pressure [Left Arm] Blood Pressure [Right Arm] Pulse Oximetry 96 Oxygen Delivery Method Room Air Room Air Oxygen Flow Rate Fraction of Inspired Oxygen 12/19/23 15:00 12/19/23 16:00 12/19/23 17:00 Temperature 96.9 F L 97.2 F L Pulse Rate 94 83 Pulse Rate [Pulse Oximeter] Respiratory Rate 16 16 Blood Pressure 131/81 134/89 127/78 Blood Pressure [Left Arm] Blood Pressure [Right Arm] Pulse Oximetry 93 95 96 Oxygen Delivery Method Room Air Room Air Room Air Oxygen Flow Rate Fraction of Inspired Oxygen 12/19/23 18:00 12/19/23 19:00 12/19/23 19:00 Temperature 98.2 F 98.2 F Pulse Rate 102 H Pulse Rate [Pulse Oximeter] 102 H Respiratory Rate 20 16 Blood Pressure 114/81 162/102 H Blood Pressure [Left Arm] 162/102 H Blood Pressure [Right Arm] Pulse Oximetry 94 94 Oxygen Delivery Method Room Air Room Air Room Air Oxygen Flow Rate Fraction of Inspired Oxygen 12/19/23 23:23 12/19/23 23:23 12/20/23 02:49 Temperature 98.0 F 97.9 F Pulse Rate Pulse Rate [Pulse Oximeter] 96 77 Respiratory Rate 16 16 20 Blood Pressure Blood Pressure [Left Arm] Blood Pressure [Right Arm] 147/83 H 150/79 H Pulse Oximetry 93 93 96 Oxygen Delivery Method Room Air Room Air Room Air Oxygen Flow Rate Fraction of Inspired Oxygen 12/20/23 07:00 12/20/23 07:00 12/20/23 07:00 Temperature 97.3 F L Pulse Rate Pulse Rate [Pulse Oximeter] 75 75 Respiratory Rate 16 16 16 Blood Pressure Blood Pressure [Left Arm] 118/76 Blood Pressure [Right Arm] Pulse Oximetry 94 94 Oxygen Delivery Method Room Air Room Air Oxygen Flow Rate Fraction of Inspired Oxygen Assessment and Plan Assessment and plan (1) Status post total left knee replacement: Problem details: - 12/19/23 Dr. Walker Status: Acute Assessment and Plan: - Complete 23 hour perioperative antibiotics. - PT/OT consults for education and assistance. Outpatient PT scheduled to begin 12/22/23. - Weight bear as tolerated with a walker for assistance. - Prescribed analgesics as needed. Patient is content with current narcotic medications. Minimize narcotic pain medication use; wean off and discontinue as soon as possible. - DVT prophylaxis: aspirin 81 mg BID x 30 days. Also, frequent ambulation and ankle pumps when sedentary. - Social consult for discharge planning. - Anticipate patient will be discharged to home later this morning if the patient remains medically stable, pain is controlled and is safe with ambulation. - Return to clinic in 1 week for a wound check. Mepilex dressing will be removed at this appointment. Remove sooner if dressing becomes saturated. - Return to clinic in [address] Walker - Phone Orthopedics with any questions or concerns. [phone]
--- NOTE | 2023-12-20 10:24 | PC.NURSE ---
Nursing discharge note: Pt is A&O, VSS and afebrile on day of discharge. Left anterior knee surgical dressing is C/D/I. No bruising or redness noted but moderate non-pitting swelling to operative leg. Pt denies any nausea or dizziness. Reports left knee pain at 4-5/10 which is adequately relieved by PRN oxycodone and scheduled Tylenol. Oxycodone last given @ 0813. Pt performing ADL's and ambulation independently in her room without issues. Tolerating PO intake with adequate U/O. PIV in right hand was discontinued, catheter intact. Discharge education and follow-up/medication instructions were reviewed with patient and her who both verbalized understanding. Pt discharged via W/C escorted by manual writer at 1010.
== END 2023-12-20 10:10 | disposition home or self-care (01) ==
LOC: OR 07:15 → MEDSURG 07:16
PROVIDERS: PCP Physician Assistant; Visit Provider Orthopaedic Surgery
PROC: (CPT 27447; principal; 2023-12-19 09:00)
DX: M17.12 Unilateral primary osteoarthritis, left knee (principal); G89.18 Other acute postprocedural pain; E66.01 Morbid (severe) obesity due to excess calories; Z68.43 Body mass index [BMI] 50.0-59.9, adult; G43.909 Migraine, unspecified, not intractable, without status migrainosus; E78.2 Mixed hyperlipidemia
CPT/HCPCS: 27447; 01402; 36415; 64447; 64454; 73560; 76942; 81025; 82565; 84132; 84295; 84520; 85025; 85610; 97110; 97116; 97161; 97165; 97530; A9270; C1776; J0665; J0690; J1100; J1170; J2250; J2405; J2704; J3010; J3490; J7120

== ENCOUNTER 2024-01-10 09:42 | Emergency (ER) | payer BC, SELFPAY ==
[2024-01-10 09:58] VITALS: BP 134/86; PULSE 96; RESP 20; TEMP 36.4; O2SAT 96; BMI 48.4
--- NOTE | 2024-01-10 10:13 | CRLHL7_ITS ---
For Patients: As a result of the Century Cures Act, medical imaging exams and procedure reports are released immediately into your electronic medical record. You may view this report before your referring provider. If you have questions, please contact your health care provider. Indication: pain posterior left knee, 2-week post op knee surgery Technique: Real-time longitudinal and transverse sonographic grayscale imaging with and without compression, as well as color and duplex Doppler imaging before and after augmentation, was obtained of the deep system of the left lower extremity, including the common femoral, femoral, popliteal, posterior tibial, and peroneal veins. Comparison: None. Findings: Common femoral vein: No evidence of thrombus. Femoral vein: No evidence of thrombus. Popliteal vein: No evidence of thrombus. Calf veins: Patent. 3.2 x 0.8 x 1.0 centimeter echogenic avascular collection in the posterior knee. Impression: 1. No ultrasound evidence of deep venous thrombosis. 2. 3.2 x 0.8 x 1.0 centimeter echogenic avascular collection in the posterior knee may represent a small hematoma. Dictated by Mark Day MD @ 01/10/2024 11:53:28 AM (Electronically Signed)
--- NOTE | 2024-01-10 12:08 | ED_ITS ---
HPI - General Adult General Chief complaint: Extremity Pain/Injury, Lower Stated complaint: Poss blood clot leg pain s/p LT knee replacement Time Seen by Provider: 01/10/24 10:50 History of Present Illness HPI narrative: This 48-year-old female comes in with pain behind her left knee for the past 2 or 3 weeks after having a knee replacement done 3 weeks ago. She is undergoing physical therapy and the therapist thought she should come here for ruling out a blood clot. The patient does not report any shortness of breath or chest pain and arrives with normal vital signs. She states that she felt great for a week or so after having the knee replacement but now is having more pain and there is a little bit of bruising behind her right knee. She is taking an aspirin twice a day and also using ibuprofen for pain. Related Data Home Medications ?Medication ?Instructions ?Recorded ?Confirmed atorvastatin 20 mg tablet 20 mg PO HS 10/23/23 01/10/24 ibuprofen 200 mg tablet (Advil) 200 mg PO Q6H PRN 10/23/23 01/10/24 Previous Rx's ?Medication ?Instructions ?Recorded aspirin 81 mg chewable tablet 81 mg PO BID for DVT prophylaxis 12/19/23 (Aspirin Childrens) 30 days #60 tabs acetaminophen 500 mg tablet 500 - 1,000 mg (1 - 2 x 500 mg) PO 12/20/23 Q4-6H PRN postop pain #100 tabs gabapentin 300 mg capsule 300 mg PO QHS #30 caps 12/27/23 Allergies Allergy/AdvReac Type Severity Reaction Status Date / Time No Known Drug Allergies Allergy Verified 12/27/23 13:59 Review of Systems Status of ROS: Reports: 10 or more systems reviewed and unremarkable except as noted in History and below Narrative: Constitutional: No fevers, no weight gain or loss. Eyes: No discharge. No vision changes. HENT: No congestion, no sore throat, no ear pain. Cardiovascular: No chest pain, no palpitations. Respiratory: No shortness of breath, no wheezes, no cough. Gastrointestinal: No abdominal pain, no vomiting, no diarrhea. Genitourinary: No dysuria, no hematuria. Musculoskeletal: Left knee replacement 3 weeks ago. Skin: No rashes, no pruritis. Neurological: No dizziness, weakness, sensory change, speech change. Endo/Heme/Allergies: No bruising or bleeding. No polydipsia. Pysch: no suicidality, no anxiety, no insomnia. All other systems reviewed and are negative. [facility] Medical History (Updated 12/19/23 @ 15:51 by Kayleigh Grajeda MD) Exercise intolerance ?R68.89 - Other general symptoms and signs (ICD-10) Physical deconditioning ?R53.81 - Other malaise (ICD-10) Colon polyp ?K63.5 - Polyp of colon (ICD-10) Insomnia ?G47.00 - Insomnia, unspecified (ICD-10) IUD (intrauterine device) in place ?Z97.5 - Presence of (intrauterine) contraceptive device (ICD-10) Mixed hyperlipidemia ?E78.2 - Mixed hyperlipidemia (ICD-10) Morbid obesity with BMI of 45.0-49.9, adult ?E66.01 - Morbid (severe) obesity due to excess calories (ICD-10) ?Z68.42 - Body mass index [BMI] 45.0-49.9, adult (ICD-10) Costochondritis ?M94.0 - Chondrocostal junction syndrome [Tietze] (ICD-10) Migraine headache ?G43.909 - Migraine, unspecified, not intractable, without status migrainosus (ICD-10) History of tobacco use ?Z87.891 - Personal history of nicotine dependence (ICD-10) Atypical chest pain ?R07.89 - Other chest pain (ICD-10) Acute bronchospasm ?J98.01 - Acute bronchospasm (ICD-10) Surgical History (Updated 01/10/24 @ 12:12 by Chavez Reese MD) Status post total left knee replacement (12/19/23) ?Z96.652 - Presence of left artificial knee joint (ICD-10) History of tubal ligation ?Z98.51 - Tubal ligation status (ICD-10) History of carpal tunnel surgery of right wrist (12/28/17) ?Z98.890 - Other specified postprocedural states (ICD-10) History of repair of anterior cruciate ligament of right knee (03/12/08) ?Z98.890 - Other specified postprocedural states (ICD-10) History of arthroscopy of right knee (07/18/07) ?Z98.890 - Other specified postprocedural states (ICD-10) H/O arthroscopy of right knee (11/15/99) ?Z98.890 - Other specified postprocedural states (ICD-10) Hx of cholecystectomy ?Z90.49 - Acquired absence of other specified parts of digestive tract (ICD- 10) Family History Mother Hypercholesterolemia High blood pressure Other Cervical cancer Ovarian cancer Social History (Updated 12/19/23 @ 15:21 by Kayleigh Grajeda MD) Narrative: . Works in [place] at [employer]. Grown kids. Quit smoking 2 months ago. Used to smoke 1-1.5ppd for 30 years. Rare alcohol use. No recreational drugs. What is your current living situation?: I presently have a place to live Problems where you live: no known problems In the past 12 months, utilities in danger of being shut off: no In past 12 months, lack of transportation kept you from medical appts, meetings, work, or getting things needed for daily living: no In the past 12 mos, have been you worried that your food would run out before you had money to buy more?: never true In the past 12 mos, the food you bought just didn't last and you didn't have money to buy more?: never true Highest level of school completed/degree received: some college, no degree Smoking Status: Former smoker What tobacco products do you use: cigarettes Smoking packs per day: 0.5 Smoking cigarettes per day: 10.0 Years smoked: 40 Smoking pack-years: 20.00 Smoking quit date/years: <= 15 years ago Do you use any of these nicotine containing products: None Second hand tobacco smoke exposure: Yes How often do you have a drink containing alcohol: monthly or less How many standard drinks containing alcohol do you have on a typical day: 1 or 2 How often do you have six or more drinks on one occasion: Never AUDIT-C Alcohol total score: 1 Non-prescribed substance use: denies use Caffeine: No How often does anyone, including family, friends and others, physically hurt you : never How often does anyone, including family, friends and others, insult or talk down to you: never How often does anyone, including family, friends and others, threaten you with harm: never How often does anyone, including family, friends and others, scream or curse at you: never service: No Exam Narrative: Exam Narrative: Constitutional: Well-developed, well-nourished, no acute distress. HEENT: Normocephalic, atraumatic. Neck: Normal range of motion. Nontender. Supple. Heart: Intact distal pulses. Lungs: No chest discomfort. No wheezes, rhonchi, or rales. Abdomen: Nontender. Back: Normal range of motion. Extremities: Knee replacement of the left knee done 3 weeks ago appears to be healing properly. There is no external sign of drainage or infection. She does have some mild bruising in the posterior aspect of her left knee. Skin: Intact. No rash. Warm. No erythema or pallor. Neurologic: No altered sensation. No weakness. Alert and oriented. Psychiatric: No suicidality. No anxiety or depression. No insomnia. Nursing notes and vitals signs are reviewed. Const: Vital Signs, click to edit/add: Vital Signs - 24 hr 01/10/24 09:58 Temperature 97.6 F Pulse Rate [Pulse Oximeter] 96 Respiratory Rate 20 Blood Pressure [Ri t Upper Arm] 134/86 Pulse Oximetry 96 Oxygen Delivery Me thod Room Air Course Vital Signs Vital signs: Initial Vital Signs Temperature 97.6 F 01/10/24 09:58 Temperature Source Temporal Artery Scan 01/10/24 09:58 Pulse Rate 96 01/10/24 09:58 Pulse Rhythm Regular 01/10/24 09:58 Respiratory Rate 20 01/10/24 09:58 Blood Pressure 134/86 01/10/24 09:58 Blood Pressure Mean 102 01/10/24 09:58 Blood Pressure Position Sitting 01/10/24 09:58 Pulse Oximetry 96 01/10/24 09:58 Oxygen Delivery Method Room Air 01/10/24 09:58 Vital Signs Temperature 97.6 F 01/10/24 09:58 Pulse Rate 96 01/10/24 09:58 Respiratory Rate 20 01/10/24 09:58 Blood Pressure 134/86 01/10/24 09:58 Pulse Oximetry 96 01/10/24 09:58 Oxygen Delivery Method Room Air 01/10/24 09:58 Temperature 97.6 F 01/10/24 09:58 Pulse Rate 96 01/10/24 09:58 Respiratory Rate 20 01/10/24 09:58 Blood Pressure 134/86 01/10/24 09:58 Pulse Oximetry 96 01/10/24 09:58 Oxygen Delivery Method Room Air 01/10/24 09:58 Medical Decision Making MDM Narrative Medical decision making narrative: This patient is sent here from physical therapy to rule out blood clot in her left leg as she is having ongoing pain status post knee replacement. Ultrasound of the left knee is obtained and shows no evidence of deep venous thrombosis. There is a small collection of fluid in the posterior aspect of the knee the could be a hematoma or a seroma. This is not in a vascular component and there is no evidence of deep venous thrombosis. This information is communicated to the patient and she is encouraged to continue her current plans. I did describe signs and symptoms that would indicate need for return and re-evaluation. Discharge Plan Discharge Clinical Impression: Status post total left knee replacement Patient Disposition: Home, Self-Care Condition: Stable Additional Instructions: Continue current plans. Increase activity as tolerated. Follow up with MD or return if worsening. Prescriptions: No Action atorvastatin 20 mg tablet 20 mg PO HS ibuprofen [Advil] 200 mg tablet 200 mg PO Q6H PRN gabapentin 300 mg capsule 300 mg PO QHS Qty: 30 0RF aspirin [Aspirin Childrens] 81 mg tablet,chewable 81 mg PO BID 30 Days Qty: 60 0RF acetaminophen 500 mg Tablet 500 - 1,000 mg PO Q4-6H MDD 4,000 mg per day PRN (Reason: postop pain) Qty: 100 0RF Follow Up/Referrals: Angely Hugo PA-C [Primary Care Provider] - Stand Alone Forms: [email or web address] Info Instructions
== END 2024-01-10 12:29 | disposition home or self-care (01) ==
LOC: ED 12:25
PROVIDERS: Emergency Provider Emergency Medicine Emergency Medical Services; PCP Physician Assistant
DX: Z47.1 Aftercare following joint replacement surgery (principal)
CPT/HCPCS: 93971; 99284

== ENCOUNTER 2024-02-20 13:45 | Outpatient (RCR) | payer BC, SELFPAY | END 2024-02-20 16:22 | disposition home or self-care (01) | PROVIDERS: PCP Physician Assistant; Visit Provider Orthopaedic Surgery | DX: M17.12 Unilateral primary osteoarthritis, left knee (principal); Z96.652 Presence of left artificial knee joint; M25.562 Pain in left knee; Z74.09 Other reduced mobility; R26.9 Unspecified abnormalities of gait and mobility; M62.81 Muscle weakness (generalized); Z51.89 Encounter for other specified aftercare | CPT/HCPCS: 93971; 97110; 97140; 97161; 97164; 99284 ==

== ENCOUNTER 2024-07-02 08:18 | Day surgery (SDC) | payer BC, SELFPAY ==
[2024-07-02] VITALS (24 sets, daily range): BP systolic 106–139; BP diastolic 61–95; PULSE 64–91; RESP 14–20; TEMP 36–36.6; O2SAT 91–99; BMI 50.8
[2024-07-02] MEDS: LACTATED RINGERS 1000 ML 1,000 ML 100 ML IV (08:25)
[2024-07-02] MEDS: CELECOXIB 200 MG CAPSULE PO (08:45)
[2024-07-02] MEDS: ACETAMINOPHEN 500 MG TABLET 1000 MG PO ×3 (08:45→22:09)
[2024-07-02] MEDS: OXYCODONE (CR) 10 MG TAB.ER.12H PO (08:45)
[2024-07-02] MEDS: SODIUM CHLORIDE 0.9 % (FLUSH) 10 ML SYRINGE IVF (08:56)
[2024-07-02] MEDS: fentaNYL 100 MCG/2 ML inj IVP (10:10)
[2024-07-02] MEDS: MIDAZOLAM HCL 1 MG/ML inj IVP (10:10)
--- NOTE | 2024-07-02 10:36 | SUR.PREOP ---
TIME?OUT:?1010 PT/demetra gutiérrez RN/enzo blanchard MDA?VERIFICATION?OF?SURGICAL?SITE,?PROCEDURE,?AND?CONSENT OBTAINED?PRIOR?TO?INVASIVE?PROCEDURE.
[2024-07-02] MEDS: CEFAZOLIN 2 GM INJ IVP (10:55)
[2024-07-02] MEDS: TRANEXAMIC ACID 100 MG/ML INJ 1000 MG IV (11:32)
[2024-07-02] MEDS: BUPIVACAINE 0.25% 30 ML INJECTION (11:35)
--- NOTE | 2024-07-02 11:59 | SUR.OPER ---
Second timeout done at 1156 before start of right total knee arthroplasty
--- NOTE | 2024-07-02 13:47 | W.ANESCHARGE ---
Anesthesia Charges Start Date/Time Anesthesia Start Date: 07/02/24 Anesthesia Start Time: 10:41 Stop Date/Time Anesthesia Stop Date: 07/02/24 Anesthesia Stop Time: 14:26
--- NOTE | 2024-07-02 13:47 | W.PM.NB ---
Nerve Block Nerve Block Time Seen by Provider: 10:10 Date Seen: 07/02/24 Type of block requested by surgeon for post-operative analgesia: adductor canal Side: right Time out performed: Yes Verification of patient name: Yes Verification of date of : Yes Site marking: site marked Name of person performing procedure: Isidro Continuous monitoring Was continuous monitoring of O2 sat, B/P, cardiac cath lab technologist, recorded every 15 minutes?: Yes Procedure Checklist: sterile prep, needles and gloves Ultrasound guided. Images saved: Yes Medications given in 5ml increments after negative aspiration: Marcaine %: 0.25 mL: 15 Needle gauge: 20 Precedex (mcg): 25 Patient tolerated procedure well: Yes Block Charges Block Charge (with Pro Fee): Femoral Nerve Use of Ultrasound Machine for Block: Yes- US Guidance/pain block
--- NOTE | 2024-07-02 13:48 | W.PM.NB ---
Nerve Block Nerve Block Time Seen by Provider: 10:10 Date Seen: 07/02/24 Type of block requested by surgeon for post-operative analgesia: geniculars Side: right Time out performed: Yes Verification of patient name: Yes Verification of date of : Yes Site marking: site marked Name of person performing procedure: Isidro Continuous monitoring Was continuous monitoring of O2 sat, B/P, child monitor, recorded every 15 minutes?: Yes Procedure Checklist: sterile prep, needles and gloves Ultrasound guided. Images saved: Yes Medications given in 5ml increments after negative aspiration: Marcaine %: 0.25 mL: 9 Needle gauge: 25 Patient tolerated procedure well: Yes Block Charges Block Charge (with Pro Fee): Genicular Nerve Block
--- NOTE | 2024-07-02 13:50 | CRLHL7_ITS ---
For Patients: As a result of the Cures Act, medical imaging exams and procedure reports are released immediately into your electronic medical record. You may view this report before your referring provider. If you have questions, please contact your health care provider. Indication: POST OP TKA Technique: Two views right knee Findings/Impression: Hardware from a right total knee arthroplasty is in satisfactory position. Bone alignment is normal. No sign of acute fracture. Postop changes are within normal limits. Dictated by Donald Myers MD @ 07/03/2024 1:02:20 PM (Electronically Signed)
--- NOTE | 2024-07-02 14:01 | PM.ORPRC ---
Procedure Note Date of procedure: 07/02/24 Procedure: PREOPERATIVE DIAGNOSIS: Right knee osteoarthritis, left TKA patellar clunk syndrome POSTOPERATIVE DIAGNOSIS: Right knee osteoarthritis, left TKA patellar clunk syndrome NAME OF OPERATION: Right total knee arthroplasty, left TKA arthroscopic debridement SURGEON: Raza Walker MD ELECTRICAL APPLIANCE MECHANIC: SHANI Cm ANESTHESIA: Spinal ESTIMATED BLOOD LOSS: 0 mL COMPLICATIONS: None SPECIMENS: None DRAINS: None PREOPERATIVE ANTIBIOTICS: Ancef 3 grams, antibiotic impregnated cement IMPLANTS: 1. J&J Attune #6 posterior stabilized femur 2. #4 fixed-bearing tibia 3. #6 posterior stabilized, 8 mm fixed-bearing polyethylene 4. 38 patella INDICATIONS: The patient is a 48-year-old with a longstanding history of severe, unrelenting right knee pain secondary to end-stage (grade IV) right knee osteoarthritis. Despite appropriate nonoperative management, including activity modification, anti-inflammatories, [id number] pain medication, bracing, physical therapy, and injections they continue to have pain and disability. She has previously undergone successful left total knee arthroplasty. More recently, she has developed painful patellar clunk syndrome. I offered her arthroscopic debridement to cure this problem. She elected to proceed with the debridement under the same anesthetic as right knee replacement. The risks, benefits and expected outcomes were discussed in detail. These included but were not limited to: Infection, bleeding, injury to blood vessel or nerve, venous thromboembolism. All questions were answered to their satisfaction. Use of an pediatric physical therapy assistant was necessary throughout the case for patient positioning and safety, soft tissue retraction, and closure. A modifier 22 should be added to this case. The patient's weight of 143 kg with a BMI of 51 and her history of previous ACL reconstruction made exposure difficult. In order to reduce the risk of aseptic loosening in a patient this size, stemmed components were used. Compared to a standard knee replacement, these factors added time and expense to complete the case. PROCEDURE: Spinal anesthesia was administered. The patient was placed supine on the operating table. The pediatric physical therapy assistant made sure the patient was positioned appropriately. The left lower extremity was prepped and draped in the usual sterile fashion. The limb was exsanguinated with the Matt bandage. The pneumatic tourniquet was inflated to 300 mmHg. A standard anterolateral portal was established. The arthroscope was introduced. The working portal was established anteromedially. Diagnostic arthroscopy was performed with findings as follows: The patellar component is intact with circumferential scarring surrounding it. The femoral component is normal, the tibial polyethylene is normal. The scarring posterior to the patellar tendon was debrided with the radiofrequency probe and shaver. A superolateral portal was placed. Then we aggressively debrided around the patellar component and posterior to the quads tendon with the shaver and radiofrequency probe. Arthroscopic instruments were removed, the portal sites were closed with a 3-0 nylon. Portals were injected with 0.25% Marcaine without epinephrine. A dry dressing was applied, the tourniquet was released. Sponge and needle counts were correct x 2. Attention was then turned to the right lower extremity. It was prepped and draped in the usual sterile fashion. The limb was exsanguinated with the Matt bandage. The pneumatic tourniquet was inflated to 300 mmHg. A standard anterior incision was made with the knee in flexion. Subcutaneous dissection was sharply taken through fascial layer #1. Full-thickness medial and lateral flaps were elevated. The pediatric physical therapy assistant retracted the soft tissues and protected them throughout the case. A standard subvastus approach was made. The patella was subluxed. The infrapatellar fat pad was debrided. The menisci and cruciate ligaments were sharply d?brided. Marginal osteophytes were d?brided with the rongeur. The drill was used to penetrate the femoral canal. The canal was aspirated and irrigated with pulse lavage. The intramedullary femoral guide was placed for a 5-degree valgus cut, removing 10 mm off the distal femur. The saw was used to make the cut. Whitesides line and the trans epicondylar axis were marked. The femoral sizing guide was pinned onto the distal femur. Three degrees of external rotation nicely parallels the transepicondylar axis. Pins were placed for posterior referencing. The four-in-one cutting guide was pinned onto the distal femur. The anterior, posterior, and chamfer cuts were made. The pediatric physical therapy assistant protected the collateral ligaments. The revision trial was placed. The box cuts were made. The drill was used x2. The stemmed, boxed trial was placed and was an excellent fit. Attention was then turned to the proximal tibia. The extramedullary tibial guide was placed for a neutral varus/valgus cut with 5 degrees of posterior slope, removing 2 mm based off the medial tibial surface. The pediatric physical therapy assistant protected the collateral ligaments and the neurovascular bundle. The saw was used to make the cut. Trial components were placed. Tight in both flexion and extension. Therefore, we replaced the tibial cutting jig advancing it 2 more mm distally and recut the tibia. Trial components were placed and now the knee was nicely balanced in both flexion and extension. The trial components were removed. The tray was placed in appropriate rotation, parallel to our tibial cutting pins. It was pinned by the pediatric physical therapy assistant and the drill x2 was used. The stemmed tibial trial was placed. The punch was used. The tray was removed. The punch was used again. Attention was then turned to the patella. Crow patellar thickness was 24 mm. The Bustle claw resection guide was used with the 9.5 mm analisa. The saw was used to make the cut. Drill holes were made by the pediatric physical therapy assistant. The trial was placed and was an excellent fit. Cancellous surfaces were irrigated with pulse lavage and thoroughly dried by the pediatric physical therapy assistant. We cemented the tibial component, then the femoral component. We impacted the 8 mm polyethylene onto the tibial tray. The knee was brought into full extension. We then cemented the patellar component. Excessive cement was removed. The cement was allowed to harden. The knee was taken through a range of motion and was found to be nicely balanced in both flexion and extension. The patella tracks centrally. The pediatric physical therapy assistant did a three minute dilute Betadine solution soak. The pediatric physical therapy assistant irrigated the wound with 3 liters of normal saline via pulse lavage. The pediatric physical therapy assistant reapproximated the extensor mechanism with #1 Vicryl in an interrupted [id number] fashion. The pediatric physical therapy assistant then ran the extensor mechanism with a #1 PDO Stratafix. The pediatric physical therapy assistant closed the subcutaneous tissues with a 3-0 Stratafix and the skin with a running 3-0 Stratafix in a subcuticular fashion. Glue was used to seal the skin. The pediatric physical therapy assistant placed a dry dressing. Sponge and needle counts were correct x2. The patient tolerated the procedure well. There were no apparent complications. They were carefully transferred to the hospital bed and taken to the postanesthesia care unit in satisfactory condition. PLAN: The patient will be mobilized with physical therapy. Aspirin will be used for DVT prophylaxis. They will be discharged to home once medically appropriate.
--- NOTE | 2024-07-02 14:32 | W.ANESCHARGE ---
Anesthesia Charges Start Date/Time Anesthesia Start Date: 07/02/24 Anesthesia Start Time: 10:41 Stop Date/Time Anesthesia Stop Date: 07/02/24 Anesthesia Stop Time: 14:26
[2024-07-02] MEDS: fentaNYL 100 MCG/2 ML inj 50 MCG IVP (14:37)
[2024-07-02] MEDS: LACTATED RINGERS 500 ML 500 ML 100 ML IV (15:02)
[2024-07-02] MEDS: HYDROmorphone 0.5 mg/0.5 ml inj IVP (15:28)
[2024-07-02] MEDS: OXYCODONE 5 MG TABLET PO ×3 (16:58→22:09)
--- NOTE | 2024-07-02 19:12 | P.IMCN_ITS ---
Date of Consult Patient: Irene Patient Consult date: 07/02/24 Requesting Physician: Orthopedics Primary Care Provider: Anna Bae, Consult Narrative Reason for consult: hyperlipidemia, hypertension Narrative: Ivett Cordon is a 48 year old female with history of hyperlipidemia, PCOS, obesity, and migraine headaches who underwent elective right total knee ar throplasty and left TKA arthroscopic debridement today by Dr. Walker for right knee osteoarthritis and left TKA pateller clunk syndrome, respectively. She feels chilled this evening and notes some discomfort in both her legs. They are still numb to the touch, but she can feel some pressure sensation. She denies CP, SOB. Review of Systems Status of ROS: Reports: 10 or more systems reviewed and unremarkable except as noted in History and below [facility] Medical History (Updated 07/02/24 @ 19:25 by Kayleigh Grajeda MD) Hypertension ?I10 - Essential (primary) hypertension (ICD-10) Exercise intolerance ?R68.89 - Other general symptoms and signs (ICD-10) Physical deconditioning ?R53.81 - Other malaise (ICD-10) Colon polyp ?K63.5 - Polyp of colon (ICD-10) Insomnia ?G47.00 - Insomnia, unspecified (ICD-10) IUD (intrauterine device) in place ?Z97.5 - Presence of (intrauterine) contraceptive device (ICD-10) Mixed hyperlipidemia ?E78.2 - Mixed hyperlipidemia (ICD-10) Morbid obesity with BMI of 45.0-49.9, adult ?E66.01 - Morbid (severe) obesity due to excess calories (ICD-10) ?Z68.42 - Body mass index [BMI] 45.0-49.9, adult (ICD-10) Costochondritis ?M94.0 - Chondrocostal junction syndrome [Tietze] (ICD-10) Migraine headache ?G43.909 - Migraine, unspecified, not intractable, without status migrainosus (ICD-10) History of tobacco use ?Z87.891 - Personal history of nicotine dependence (ICD-10) Atypical chest pain ?R07.89 - Other chest pain (ICD-10) Acute bronchospasm ?J98.01 - Acute bronchospasm (ICD-10) Surgical History S/P left knee arthroscopy (07/02/24) ?Z98.890 - Other specified postprocedural states (ICD-10) Status post total right knee replacement (07/02/24) ?Z96.651 - Presence of right artificial knee joint (ICD-10) Status post total left knee replacement (12/19/23) ?Z96.652 - Presence of left artificial knee joint (ICD-10) History of tubal ligation ?Z98.51 - Tubal ligation status (ICD-10) History of carpal tunnel surgery of right wrist (12/28/17) ?Z98.890 - Other specified postprocedural states (ICD-10) History of repair of anterior cruciate ligament of right knee (03/12/08) ?Z98.890 - Other specified postprocedural states (ICD-10) History of arthroscopy of right knee (07/18/07) ?Z98.890 - Other specified postprocedural states (ICD-10) H/O arthroscopy of right knee (11/15/99) ?Z98.890 - Other specified postprocedural states (ICD-10) Hx of cholecystectomy ?Z90.49 - Acquired absence of other specified parts of digestive tract (ICD- 10) Family History Mother Hypercholesterolemia High blood pressure Other Cervical cancer Ovarian cancer Social History Narrative: . 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 Grown kids. Quit smoking 2 months ago. Used to smoke 1-1.5ppd for 30 years. Rare alcohol use. No recreational drugs. What is your current living situation?: I presently have a place to live Problems where you live: no known problems In the past 12 months, utilities in danger of being shut off: no In past 12 months, lack of transportation kept you from medical appts, meetings, work, or getting things needed for daily living: no In the past 12 mos, have been you worried that your food would run out before you had money to buy more?: never true In the past 12 mos, the food you bought just didn't last and you didn't have money to buy more?: never true Highest level of school completed/degree received: some college, no degree Smoking Status: Former smoker What tobacco products do you use: cigarettes Smoking packs per day: 0.5 Smoking cigarettes per day: 10.0 Years smoked: 40 Smoking pack-years: 20.00 Smoking quit date/years: <= 15 years ago Do you use any of these nicotine containing products: None Second hand tobacco smoke exposure: Yes How often do you have a drink containing alcohol: monthly or less How many standard drinks containing alcohol do you have on a typical day: 1 or 2 How often do you have six or more drinks on one occasion: Never AUDIT-C Alcohol total score: 1 Non-prescribed substance use: denies use Caffeine: Yes How often does anyone, including family, friends and others, physically hurt you : never How often does anyone, including family, friends and others, insult or talk down to you: never How often does anyone, including family, friends and others, threaten you with harm: never How often does anyone, including family, friends and others, scream or curse at you: never service: No Meds Home Medications and Allergies Home Medications ?Medication ?Instructions ?Recorded ?Confirmed ?Type atorvastatin 20 mg tablet 20 mg PO HS 10/23/23 07/02/24 History ibuprofen 200 mg tablet (Advil) 200 mg PO Q6H PRN 10/23/23 07/02/24 History losartan 50 mg tablet 100 mg PO DAILY 06/24/24 07/02/24 History Allergies Allergy/AdvReac Type Severity Reaction Status Date / Time No Known Drug Allergies Allergy Verified 07/02/24 08:30 Exam Narrative: Exam Narrative: General: No acute distress. Sleeping, easily aroused, then alert, oriented x3. Morbidly obese. HEENT: Normocephalic atraumatic, pupils equally round and reactive to light and accommodation. Oropharynx clear. Mucous membranes are moist. No cervical lymphadenopathy, thyromegaly or carotid bruits. No JVD. Cardiovascular: Regular rate and rhythm. No murmurs, gallops, or rubs. Chest: No increased work of breathing. Clear to auscultation bilaterally. No crackles or wheezes. Abdomen: Bowel sounds present. Soft, nondistended, nontender. No hepatosplenomegaly or masses. Extremities: Right knee bandage is clean, dry, and intact. Left knee is in an BETTY wrap. This is C/D/I. Skin: No jaundice, no pallor, no rashes. Const: Vital Signs, click to edit/add: Vital Signs - 24 hr 07/02/24 08:52 07/02/24 10:10 07/02/24 10:15 Temperature 97.9 F Pulse Rate 83 68 64 Respiratory Rate 16 16 16 Blood Pressure 120/61 139/62 108/71 Pulse Oximetry 96 99 99 Oxygen Delivery Me thod Room Air Nasal Cannula Nasal Cannula Oxygen Flow Rate 3 3 07/02/24 14:23 07/02/24 14:25 07/02/24 14:30 Temperature 97.3 F L Pulse Rate 91 91 84 Respiratory Rate 14 14 14 Blood Pressure 115/74 106/66 107/73 Pulse Oximetry 93 93 93 Oxygen Delivery Me thod Room Air Room Air Room Air Oxygen Flow Rate 07/02/24 14:35 07/02/24 14:40 07/02/24 14:45 Temperature Pulse Rate 83 79 78 Respiratory Rate 14 16 16 Blood Pressure 130/80 139/85 126/68 Pulse Oximetry 92 92 92 Oxygen Delivery Me thod Room Air Room Air Room Air Oxygen Flow Rate 3 07/02/24 14:50 07/02/24 14:56 Temperature 97.0 F L Pulse Rate 77 75 Respiratory Rate 16 16 Blood Pressure 124/90 H 131/95 H Pulse Oximetry 94 94 Oxygen Delivery Me thod Room Air Room Air Oxygen Flow Rate Assessment and Plan Assessment and plan (1) Status post total right knee replacement: Problem comment: - 07/02/24 Dr. Walker - routine post op cares - VTE prophylaxis with BID low dose aspirin - pain control with acetaminophen and oxycodone, bowel regimen with senna - PT/OT Status: Acute (2) Osteoarthritis of right knee: Status: Chronic (3) S/P left knee arthroscopy: Problem comment: - 07/02/24 Dr. Walker - routine post op cares - PT/OT Status: Acute (4) Obesity: Problem comment: BMI 51.6 Status: Chronic (5) Mixed hyperlipidemia: Problem comment: Continue atorvastatin Status: Chronic (6) Hypertension: Problem comment: - hold losartan tomorrow morning. Monitor BP, restart if BP elevated Status: Chronic
[2024-07-02] MEDS: ASPIRIN 81 MG TABLET EC PO (20:10)
[2024-07-02] MEDS: GABAPENTIN 300 MG CAPSULE PO (20:11)
[2024-07-02] MEDS: SENNOSIDES 1 TAB TABLET 2 TAB PO (20:11)
[2024-07-02] MEDS: ATORVASTATIN 10 MG TABLET 20 MG PO (20:11)
[2024-07-02] MEDS: CEFAZOLIN 3 GM in 0.9 % SODIUM CHLORIDE Mini-bag 100 ML IVPB (20:14)
[2024-07-02] MEDS: GABAPENTIN 600 MG TABLET PO (22:45)
--- NOTE | 2024-07-02 23:29 | PC.NURSE ---
Admission/shift note: Pt pleasant, A&O. Up SBA with a walker, moves very well. Dressings to both knees are CDI, CMS intact. Plexipulses on. Active ice to both knees. IS to 1000. Tolerated dinner with no N/V. Denies SOB and CP. PRN Oxycodone and Dilaudid given with pt reporting relief. VSS on room air, applied 1L at bedtime to keep sats above 90%.
[2024-07-03] MEDS: OXYCODONE 5 MG TABLET PO ×5 (00:03→11:00)
[2024-07-03 03:00] VITALS: BP 107/68; PULSE 82; RESP 18; TEMP 36.6; O2SAT 95
[2024-07-03] MEDS: ACETAMINOPHEN 500 MG TABLET 1000 MG PO ×2 (04:17→11:00)
[2024-07-03] MEDS: CEFAZOLIN 3 GM in 0.9 % SODIUM CHLORIDE Mini-bag 100 ML IVPB (04:18)
--- NOTE | 2024-07-03 06:30 | PC.NURSE ---
23-07: pleasant and cooperative. SBA with walker, ambulating well. Rating pain 4-7/10, prn oxy given. Pain in right knee > left knee. Active ice to right knee, dressing CDI. Left leg wrapped with BETTY bandage. VSS.
[2024-07-03 06:34] LABS: Basophils Absolute Auto 0.04 K/uL (0.00-0.30); Basophils Percent Auto 0.4 % (0.0-3.0); Eosinophils Absolute Auto 0.05 K/uL (0.00-0.50); Eosinophils Percent Auto 0.6 % (0.0-7.0); Hematocrit 36.5 % (33.0-51.0); Hemoglobin* 12.2 gm/dL (12.0-16.0); Immature Granulocytes Abs Auto 0.01 K/uL (0.00-0.30); Immature Granulocytes Pct Auto 0.1 %; Lymphocytes Percent Auto 13.7 % (20-44); Mean Corpuscular HGB Conc 33 gm/dL (32-36); Mean Corpuscular Hemoglobin 30 pg (26-34); Mean Corpuscular Volume 90 fL (80-100); Monocytes Percent Auto 11.2 % (0.0-11.0); Platelet Count* 205 K/uL (140-440); RDW Coefficient of Variation % 13.1 % (11.5-15.5); Red Blood Count 4.05 m/uL (4.00-5.20); White Blood Count* 9.05 K/uL (4.50-11.00)
[2024-07-03 06:55] LABS: Slide Review Reflex No
[2024-07-03 06:59] LABS: INR 1.16 (0.91-1.10); Potassium* 4.6 mmol/L (3.6-5.1); Prothrombin Time 15.6 Seconds; Sodium* 134 mmol/L (135-149)
[2024-07-03 07:02] LABS: Blood Urea Nitrogen* 15 mg/dL (5-24); Creatinine* 0.7 mg/dL (0.5-1.5); Est. Creatinine Clearance* 91.01; Estimated Glomerular Filt Rate 106 ml/min
[2024-07-03 08:00] VITALS: BP 131/87; PULSE 92; RESP 18; TEMP 36.6; O2SAT 93
[2024-07-03] MEDS: SENNOSIDES 1 TAB TABLET 2 TAB PO (08:00)
[2024-07-03] MEDS: ASPIRIN 81 MG TABLET EC PO (08:00)
[2024-07-03] MEDS: GABAPENTIN 300 MG CAPSULE PO (08:00)
--- NOTE | 2024-07-03 10:07 | P.ORPN_ITS ---
Subjective Subjective Time Seen by Provider: 07:20 Date Seen: 07/03/24 Principal diagnosis: Status post right knee replacement and left knee debridement 07/02/2024 Interval history: Ivett did not get much sleep last night. She has some discomfort. She is comfortable in the recliner this morning. Ortho Exam Narrative Exam Narrative: Alert and oriented x3. Patient is in no acute distress. Converses without labored breathing. Hearing is grossly intact. Ambulates with a walker. Examination of the right knee shows dressing is in place. Soft tissue edema is mild. Mild ecchymosis. Calf is soft and nontender. She is able to straight leg raise. CMS is intact right lower extremity. Examination of the left lower extremity shows Marquise bandages in place. Calf is soft and nontender. She is able to straight leg raise. CMS is intact left lower extremity. Const Vital Signs, click to edit/add: Vital Signs - 24 hr 07/02/24 10:10 07/02/24 10:15 07/02/24 14:23 Temperature 97.3 F L Pulse Rate 68 64 91 Pulse Rate [Pulse Oximeter] Respiratory Rate 16 16 14 Blood Pressure 139/62 108/71 115/74 Blood Pressure [Right Arm] Pulse Oximetry 99 99 93 Oxygen Delivery Method Nasal Cannula Nasal Cannula Room Air Oxygen Flow Rate 3 3 07/02/24 14:25 07/02/24 14:30 07/02/24 14:35 Temperature Pulse Rate 91 84 83 Pulse Rate [Pulse Oximeter] Respiratory Rate 14 14 14 Blood Pressure 106/66 107/73 130/80 Blood Pressure [Right Arm] Pulse Oximetry 93 93 92 Oxygen Delivery Method Room Air Room Air Room Air Oxygen Flow Rate 07/02/24 14:40 07/02/24 14:45 07/02/24 14:50 Temperature Pulse Rate 79 78 77 Pulse Rate [Pulse Oximeter] Respiratory Rate 16 16 16 Blood Pressure 139/85 126/68 124/90 H Blood Pressure [Right Arm] Pulse Oximetry 92 92 94 Oxygen Delivery Method Room Air Room Air Room Air Oxygen Flow Rate 3 07/02/24 14:56 07/02/24 15:02 07/02/24 15:15 Temperature 97.0 F L 96.8 F L 96.9 F L Pulse Rate 75 68 74 Pulse Rate [Pulse Oximeter] Respiratory Rate 16 16 18 Blood Pressure 131/95 H 120/65 121/84 Blood Pressure [Right Arm] Pulse Oximetry 94 95 95 Oxygen Delivery Method Room Air Room Air Room Air Oxygen Flow Rate 07/02/24 15:30 07/02/24 15:45 07/02/24 16:00 Temperature 96.9 F L 96.9 F L 96.9 F L Pulse Rate 73 72 71 Pulse Rate [Pulse Oximeter] Respiratory Rate 18 16 18 Blood Pressure 132/94 H 116/68 116/65 Blood Pressure [Right Arm] Pulse Oximetry 95 95 96 Oxygen Delivery Method Room Air Room Air Room Air Oxygen Flow Rate 07/02/24 16:30 07/02/24 17:00 07/02/24 18:00 Temperature 97.0 F L 97.0 F L 97.0 F L Pulse Rate 69 77 74 Pulse Rate [Pulse Oximeter] Respiratory Rate 16 16 18 Blood Pressure 122/78 125/74 129/78 Blood Pressure [Right Arm] Pulse Oximetry 96 95 96 Oxygen Delivery Method Room Air Room Air Room Air Oxygen Flow Rate 07/02/24 19:00 07/02/24 20:00 07/02/24 21:00 Temperature 97.0 F L 97.1 F L Pulse Rate 74 90 Pulse Rate [Pulse Oximeter] Respiratory Rate 16 16 18 Blood Pressure 121/78 122/83 Blood Pressure [Right Arm] Pulse Oximetry 95 91 94 Oxygen Delivery Method Room Air Room Air Nasal Cannula Oxygen Flow Rate 0 1 07/02/24 21:00 07/02/24 22:59 07/02/24 23:00 Temperature 97.0 F L 97.2 F L Pulse Rate 74 Pulse Rate [Pulse Oximeter] 78 Respiratory Rate 18 20 20 Blood Pressure 111/78 Blood Pressure [Right Arm] 117/63 Pulse Oximetry 92 98 98 Oxygen Delivery Method Nasal Cannula Room Air Room Air Oxygen Flow Rate 1 07/02/24 23:00 07/03/24 03:00 Temperature 97.9 F Pulse Rate Pulse Rate [Pulse Oximeter] 82 Respiratory Rate 20 18 Blood Pressure Blood Pressure [Right Arm] 107/68 Pulse Oximetry 95 Oxygen Delivery Method Room Air Oxygen Flow Rate Assessment and Plan Assessment and plan (1) S/P left knee arthroscopy: Problem details: - 07/02/24 Dr. Walker - routine post op cares - PT/OT Status: Acute Assessment and Plan: Keep a dressing on for 3 days post surgery. Nylon Sutures close the wounds. These will be removed in 1-2 weeks. (2) Status post total right knee replacement: Problem details: - 07/02/24 Dr. Walker - routine post op cares - VTE prophylaxis with BID low dose aspirin - pain control with acetaminophen and oxycodone, bowel regimen with senna - PT/OT Status: Acute Assessment and Plan: Plan for discharge is today to home if they meet discharge criteria. DVT prophylaxis includes aspirin 81 mg twice daily x1 month, Compression sto ckings as needed for swelling. Frequent ambulation, every hour throughout the day. Remove dressing in 1 week. Observe wound and phone Orthopedics with any questions or concerns Return to clinic in 1 week for a wound check Return to clinic in 6 weeks with surgeon Minimize narcotic use. Wean off and discontinue soon as possible. Activities as tolerated. No strenuous activity. Outpatient physical therapy as scheduled. Ice and elevate the operative extremities No restriction on ice.
--- NOTE | 2024-07-03 12:26 | PC.NURSE ---
Nursing discharge note: Pt has been A&O, afebrile and VSS morning of discharge. She reports right knee pain 8/10 right away this morning so PRN oxycodone given x2 doses @ 0800 and 1100 with adequate pain relief on top of scheduled Tylenol. Pt is SBA with 2ww. RL dressing C/D/I. LL BETTY wrap has been falling down so we confirmed with surgeon that it can be removed & x3 suture sites covered with waterproof Mepilex dressings. PIV in left hand removed, catheter intact. Pt denies any nausea, SOB/CP or dizziness with ambulating. has been here at bedside this morning. Discharge instructions were reviewed with both patient and her who verbalized understanding. Pt discharged home accompanied by and NELSON Gonzalez via W/C at 1140.
== END 2024-07-03 11:40 | disposition home or self-care (01) ==
LOC: OR 08:19 → MEDSURG 08:20
PROVIDERS: PCP Family Medicine; Visit Provider Orthopaedic Surgery
PROC: (CPT 27447; principal; 2024-07-02 10:30)
PROC: (CPT 29870; 2024-07-02 10:30)
DX: M17.11 Unilateral primary osteoarthritis, right knee (principal); M25.862 Other specified joint disorders, left knee; Z96.652 Presence of left artificial knee joint; G89.18 Other acute postprocedural pain; E66.01 Morbid (severe) obesity due to excess calories; Z68.43 Body mass index [BMI] 50.0-59.9, adult; I10 Essential (primary) hypertension; E28.2 Polycystic ovarian syndrome; G43.909 Migraine, unspecified, not intractable, without status migrainosus; E78.2 Mixed hyperlipidemia; Z87.891 Personal history of nicotine dependence
CPT/HCPCS: 27447; 29877; 01402; 36415; 64447; 64454; 73560; 76942; 82565; 84132; 84295; 84520; 85025; 85610; 97110; 97116; 97162; 97165; 97535; A9270; C1776; J0665; J0690; J1171; J2250; J2371; J2704; J3010; J3490; J7120

== ENCOUNTER 2024-08-20 08:45 | Outpatient (RCR) | payer BC, SELFPAY | END 2024-12-18 23:59 | disposition home or self-care (01) | PROVIDERS: PCP Family Medicine; Visit Provider Orthopaedic Surgery | DX: Z51.89 Encounter for other specified aftercare (principal); Z48.89 Encounter for other specified surgical aftercare; Z96.651 Presence of right artificial knee joint | CPT/HCPCS: 97110; 97162 ==